=== PATIENT | female | born 1970 | race Caucasian/White ===

== ENCOUNTER 2016-12-11 17:00 | Emergency (ER) | payer OTHER ==
[2016-12-11 17:27] VITALS: BP 147/88
--- NOTE | 2016-12-11 17:37 | UC ---
Skin Complaint HPI - HPI Summary HPI Summary: ITCHY RASH ALL OVER X 9 DAYS HAS AT [place] 10 DAYS AGO , WENT TO THE URGENT CARE FOR THE RASH , WAS PLACED ON PREDNISONE FOR 3 DAYS , NOT MUCH IMPROVEMENT OF THE THE RASH NO FEVER, NO CHILLS, NO SOB - History of Current Complaint Chief Complaint: UCSkin Time Seen by Provider: 12/11/16 17:11 Stated Complaint: RASH & COLD SYMPTOMS Hx Obtained From: Patient Hx Last Menstrual Period: ablation ?: No Onset/Duration: Sudden Onset, Lasting Days - 9, Still Present Timing: Constant Onset Severity: Moderate Current Severity: Moderate Location: Diffuse Character: Pruritus, Hives, Redness Aggravating: Nothing Alleviating: Nothing Associated Signs & Symptoms: Positive: Cough. Negative: Nausea, Vomiting, Numbness, Thirst, Diaphoresis, Weakness, Pallor, Shivering, Difficulty Breathing , Fever, Chills, Wheezing, Throat Tightening - Allergy/Home Medications Allergies/Adverse Reactions: Allergies Allergy/AdvReac Type Severity Reaction Status Date / Time seasonal Allergy Intermediate Congestion Uncoded 12/11/16 17:18 Home Medications: Home Medications Amoxicillin CAP* [-Amoxicillin CAP*] 250 mg PO TID 12/11/16 [History Confirmed 12/11/16] Diphenhydramine HCl [Benadryl Allergy] 50 mg PO Q6H PRN 12/11/16 [History Confirmed 12/11/16] Sleeping Aid 1 tab PO BEDTIME PRN 12/11/16 [History Confirmed 12/11/16] Review of Systems Constitutional: Negative Skin: Rash Eyes: Negative ENT: Sore Throat Respiratory: Cough Cardiovascular: Negative Gastrointestinal: Negative Genitourinary: Negative All Other Systems Reviewed And Are Negative: Yes PMH/Surg Hx/FS Hx/Imm Hx Endocrine History Of: Reports: Thyroid Disease - HYPO Denies: Diabetes Cardiovascular History Of: Denies: Cardiac Disorders, Hypertension, Pacemaker/ICD Respiratory History Of: Reports: Asthma Denies: COPD, Bronchitis GI/ History Of: Denies: Ulcer Psychological History Of: Reports: Anxiety - Surgical History Surgical History: Yes Surgery Procedure, Year, and Place: Uterine Ablation. Tubes in Ears. Sinus Surgery. Right Ankle Reconstruction. LEFT SHOULDER REPAIR. BLADDER- STIMULATOR REMOVED - PT NEEDS TO GET DOCUMENTATION THAT ALL PARTS OF STIMULATOR WAS REMOVED INCLUDING WIRES - Family History Known Family History: Positive: None Negative: Diabetes - Social History Alcohol Use: Occasionally Substance Use Type: None Smoking Status (MU): Never Smoked Tobacco - Immunization History Most Recent Influenza Vaccination: no Most Recent Tetanus Shot: around 5 yr ago Physical Exam Triage Information Reviewed: Yes Appearance: Well-Appearing, No Pain Distress, Well-Nourished Vital Signs: Initial Vital Signs Temp 98.8 F 12/11/16 17:10 Pulse 88 12/11/16 17:10 Resp 16 12/11/16 17:10 BP 147/88 12/11/16 17:10 Pulse Ox 100 12/11/16 17:10 Vital Signs Reviewed: Yes Eyes: Positive: Conjunctiva Clear ENT: Positive: Normal ENT inspection, Hearing grossly normal, Pharynx normal, Pharyngeal erythema Neck: Positive: Supple, Nontender, No Lymphadenopathy Respiratory: Positive: Chest non-tender, Lungs clear, Normal breath sounds Cardiovascular: Positive: RRR, No Murmur, Pulses Normal Skin: Positive: rashes - GENERALIZED MACULAR RASH Course/Dx - Diagnoses Provider Diagnoses: HIVES Discharge - Discharge Plan Condition: Stable Disposition: HOME Prescriptions: predniSONE TAB* [Deltasone TAB*] 40 mg PO DAILY #14 tab Patient Education Materials: Urticaria (ED) Referrals: Oralia Mckeon [Primary Care Provider] - 7 Days
== END 2016-12-11 17:45 | disposition home or self-care (01) ==
LOC: UCCORT 17:00
DX: L50.9 Urticaria, unspecified (principal)
CPT/HCPCS: 99212; G0463

== ENCOUNTER 2017-04-13 09:09 | Emergency (ER) | payer OTHER ==
[2017-04-13 09:52] VITALS: BP 149/72
--- NOTE | 2017-04-13 09:52 | UC ---
Upper Extremity HPI - HPI Summary HPI Summary: She has had right shoulder pain for about a month. there is no neck pain. She gets more pain with sleeping on it. she practices crossfit. No fall or obvious injuury. - History of Current Complaint Chief Complaint: UCUpperExtremity Stated Complaint: RIGHT SHOULDER PAIN Hx Obtained From: Patient Hx Last Menstrual Period: 8 yrs ago Onset/Duration: Lasting Days Severity Initially: Moderate Location Of Pain: Is Discrete @ Character: Dull, Aching Aggravating Factor(s): Movement, Lifting, Internal/External Rotation Alleviating Factor(s): Ice, Rest Associated Signs And Symptoms: Positive: Negative - Allergies/Home Medications Allergies/Adverse Reactions: Allergies Allergy/AdvReac Type Severity Reaction Status Date / Time seasonal Allergy Intermediate Congestion Uncoded 04/13/17 09:39 Home Medications: Home Medications Anti-Anxiety Med 1 tab PO DAILY 04/13/17 [History Confirmed 04/13/17] LORazepam TAB(*) [Ativan 0.5 MG TAB (*)] 0.5 mg PO BEDTIME PRN 04/13/17 [ History Confirmed 04/13/17] PMH/Surg Hx/FS Hx/Imm Hx Endocrine History Of: Reports: Diabetes, Thyroid Disease - HYPO Cardiovascular History Of: Denies: Cardiac Disorders, Hypertension, Pacemaker/ICD Respiratory History Of: Reports: Asthma Denies: COPD, Bronchitis GI/ History Of: Denies: Ulcer Psychological History Of: Reports: Anxiety - Surgical History Surgical History: Yes Surgery Procedure, Year, and Place: Uterine Ablation. Tubes in Ears. Sinus Surgery. Right Ankle Reconstruction. LEFT SHOULDER REPAIR. BLADDER- STIMULATOR REMOVED - PT NEEDS TO GET DOCUMENTATION THAT ALL PARTS OF STIMULATOR WAS REMOVED INCLUDING WIRES - Family History Known Family History: Positive: None Negative: Diabetes - Social History Alcohol Use: Occasionally Substance Use Type: None Smoking Status (MU): Never Smoked Tobacco - Immunization History Most Recent Influenza Vaccination: no Most Recent Tetanus Shot: around 5 yr ago Review of Systems All Other Systems Reviewed And Are Negative: Yes Physical Exam Triage Information Reviewed: Yes Appearance: Well-Appearing, No Pain Distress, Well-Nourished Vital Signs: Initial Vital Signs Temp 97.9 F 04/13/17 09:41 Pulse 96 04/13/17 09:41 Resp 18 04/13/17 09:41 BP 149/72 04/13/17 09:41 Pulse Ox 100 04/13/17 09:41 Vital Signs Reviewed: Yes Eye Exam: Normal Eyes: Positive: Conjunctiva Clear ENT Exam: Normal Neck exam: Normal Neck: Positive: Supple, Nontender, No Lymphadenopathy Respiratory Exam: Normal Cardiovascular Exam: Normal Cardiovascular: Positive: RRR Abdominal Exam: Normal Musculoskeletal Exam: Other - 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 There is full strength with internal and external rotation and lateral abduction but there is pain with empty can. Neg apprehension and cross over test. Musculoskeletal: Positive: ROM Intact, No Edema Upper Extremity Course/Dx - Differential Dx/Diagnosis Provider Diagnoses: right shoulder pain. likely bursitis vs rotator cuff strain Discharge - Discharge Plan Condition: Good Disposition: HOME Prescriptions: Naproxen TAB* [Naprosyn 250 mg TAB*] 500 mg PO Q8H PRN #20 tab PRN Reason: Pain Patient Education Materials: Shoulder Pain (ED) Referrals: Oralia Mckeon [Primary Care Provider] - Kenan Corral MD [Medical Doctor] -
== END 2017-04-13 10:04 | disposition home or self-care (01) ==
LOC: UCCORT 09:09
DX: M25.511 Pain in right shoulder (principal); E11.9 Type 2 diabetes mellitus without complications; E03.9 Hypothyroidism, unspecified; J45.909 Unspecified asthma, uncomplicated; F41.9 Anxiety disorder, unspecified
CPT/HCPCS: 99212; G0463

== ENCOUNTER 2017-05-13 09:55 | Emergency (ER) | payer OTHER ==
[2017-05-13 12:08] VITALS: BP 145/60
--- NOTE | 2017-05-13 12:44 | UC ---
Hand/Wrist HPI - HPI Summary HPI Summary: complaint of left midddle finger swelling and pain following a manicure 7 days ago since then the swelling has increased and pain is radiating into finger and hand using hot ompresses and neosporin with relief denies fever and chills taking ibuprofen with some relief - History Of Current Complaint Chief Complaint: Idalmis Stated Complaint: LEFT HAND/FINGER PAIN Time Seen by Provider: 05/13/17 12:28 Hx Obtained From: Patient Hx Last Menstrual Period: 2005 - Allergies/Home Medications Allergies/Adverse Reactions: Allergies Allergy/AdvReac Type Severity Reaction Status Date / Time seasonal Allergy Intermediate Congestion Uncoded 05/13/17 12:07 Home Medications: Home Medications Antidepressant 1 tab PO DAILY 05/13/17 [History Confirmed 05/13/17] PMH/Surg Hx/FS Hx/Imm Hx Previously Healthy: Yes - Surgical History Surgical History: Yes Surgery Procedure, Year, and Place: Uterine Ablation. Tubes in Ears. Sinus Surgery. Right Ankle Reconstruction. LEFT SHOULDER REPAIR. 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 - Family History Known Family History: Positive: None Negative: Cardiac Disease, Hypertension, Diabetes - Social History Occupation: Employed Full-time Alcohol Use: Occasionally Substance Use Type: None Smoking Status (MU): Never Smoked Tobacco - Immunization History Most Recent Influenza Vaccination: no Most Recent Tetanus Shot: since 2006 Review of Systems Constitutional: Negative Skin: Other - left middle finger pain Eyes: Negative ENT: Negative Respiratory: Negative Cardiovascular: Negative Gastrointestinal: Negative Genitourinary: Negative Motor: Negative Neurovascular: Negative Musculoskeletal: Negative Neurological: Negative Psychological: Negative All Other Systems Reviewed And Are Negative: Yes Physical Exam Triage Information Reviewed: Yes Appearance: No Pain Distress, Well-Nourished Vital Signs: Initial Vital Signs Temp 99 F 05/13/17 12:00 Pulse 79 05/13/17 12:00 Resp 18 05/13/17 12:00 BP 145/60 05/13/17 12:00 Vital Signs Reviewed: Yes Eyes: Positive: Conjunctiva Clear ENT: Positive: Pharynx normal, TMs normal Neck: Positive: No Lymphadenopathy Respiratory: Positive: Lungs clear, Normal breath sounds, No respiratory distress Cardiovascular: Positive: RRR, No Murmur, Pulses Normal Abdomen Description: Positive: Nontender, Soft Bowel Sounds: Positive: Present Musculoskeletal: Positive: Other: - left middle finger with area of induration of medial side of finger in distal joint, area of erythema around induration Neurological: Positive: Alert Psychological Exam: Normal Skin Exam: Normal - see musculoskeletal Hand/Wrist Course/Dx - Differential Dx/Diagnosis Provider Diagnoses: cellulitis, abscess left middle finger pain Discharge - Discharge Plan Condition: Stable Disposition: HOME Prescriptions: Cephalexin CAP* [Keflex CAP*] 500 mg PO TID #21 cap Patient Education Materials: Cellulitis (ED) Referrals: Any De Leon MD [Primary Care Provider] - Additional Instructions: Please start antibiotic as directed Increase fluids and rest Take acetaminophen or ibuprofen for fever or pain Please review your discharge instructions. If your symptoms do not improve please call your primary care provider or return to urgent care.
== END 2017-05-13 13:07 | disposition home or self-care (01) ==
LOC: UCCORT 09:55
DX: L03.012 Cellulitis of left finger (principal); L02.512 Cutaneous abscess of left hand
CPT/HCPCS: 87070; 87077; 87186; 87205; 87640; 87641; 99212; G0463

== ENCOUNTER 2017-11-23 17:22 | Emergency (ER) | payer BC ==
--- OUTSIDE RECORDS SUMMARY | 2017-11-23 18:12 | XMS REPORT ---
:1970 External Reference #:[id number] Author Organization [employer] Address [address] [address] Phone [phone] Care Team Providers Name Role Phone Any De Leon MD Primary Care Physician Unavailable Payers Type Date Identification Numbers Payment Provider Subscriber Commercial Effective: Policy Number: BS Facets Charleen Acevedo 2017 [id number] PayID: [id number] [address] [address] [place] [address] Problems Date Description Provider Status Onset: 11/03/2017 Strain of musc/tend the rotator cuff of Poli Curry MD Active right shoulder, subs Onset: 11/03/2017 Bicipital tenosynovitis Poli Curry MD Active Family History Date Family Member(s) Problem(s) Comments General Stroke mother. 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 ETOH Use Occasionally consumes alcohol Recreational Drug Use Denies Drug Use Smoking Patient is a former smoker Exercise Type/Frequency Cross fit 4-5 times per week Allergies, Adverse Reactions, Alerts Date Description Reaction Status Severity Comments 09/11/2013 NKDA active Medications Medication Date Status Form Strength Qnty SIG Indications Ordering Provider Singulair Active Tablets 10mg 90tabs 1 po qd Unknown 000 Ativan Active Tablets 1mg 20tabs 1/2-1 po bid Unknown 000 prn Advair Diskus Active Aerosol 100-50mcg/ 1units 1 inhalation Unknown 000 Dose twice daily [place] Active Tablets 1 po every Unknown Thyroid 000 day Ibuprofen Active Tablets 200mg 4 po as Unknown 000 needed Naproxen Hx Tablets 500mg 60tabs 1 tablet M25.562 Sonali 016 - with food by Kenan, mouth twice M.D. 017 a day Naproxen Hx Tablets 500mg 60tabs 1 po bid prn 719.41 Praveen 013 - with food Veigel, M.D. 017 Synthroid Hx Tablets 100mcg 90tabs 1 po qd Unknown 000 - 017 Medications Administered in Office Medication Date Status Form Strength Qnty SIG Indications Ordering Provider Triamcinolone 11/03/ Administered Injection Zaneb (Kenalog) 2016 MD Antoinette Celestone 3 mg 10/25/ Administered Injection Kenan M and 3mg 2016 MD Shayna Celestone 3 mg 04/13/ Administered Injection Kenan [place] and 3mg 2016 MD Shayna Vital Signs Date Vital Result Comment 11/03/2017 Height 70 inches 5'10" Weight 192.00 lb Heart Rate 80 /min Respiratory Rate 14 /min Body Temperature 98.1 F Pain Level 7 BMI (Body Mass Index) 27.5 kg/m2 10/25/2017 Height 70 inches 5'10" Weight 193.00 lb Heart Rate 68 /min BP Systolic Sitting 132 mmHg BP Diastolic Sitting 68 mmHg Respiratory Rate 16 /min Pain Level 8 finger, 6 for shoulder BMI (Body Mass Index) 27.7 kg/m2 04/13/2017 Heart Rate 88 /min BP Systolic 124 mmHg BP Diastolic 78 mmHg Respiratory Rate 16 /min Pain Level 6 02/16/2016 Height 70 inches 5'10" Weight 198.00 lb Pain Level 0 BMI (Body Mass Index) 28.4 kg/m2 01/05/2016 Height 70 inches 5'10" Weight 198.00 lb Heart Rate 72 /min BP Systolic Sitting 132 mmHg BP Diastolic Sitting 74 mmHg Respiratory Rate 16 /min Pain Level 8 at the worst BMI (Body Mass Index) 28.4 kg/m2 09/11/2013 Height 70 inches 5'10" Weight 192.00 lb BMI (Body Mass Index) 27.5 kg/m2 Results Test Date Test Result H/L Range Note Xray 09/20/2013 Shoulder Complete LT Min Of 2 Views <pending> Procedures Date CPT Code Description Status 11/03/2017 Inject/Drain Joint/Bursa Major Completed 10/25/2017 52995 Rad Exam; Hand Comp Completed 10/25/201757282 Inject/Drain Joint/Bursa Small Completed 04/13/2017 99233 Rad Shoulder Comp, Min. 2 Views Completed 04/13/2017 40409 Inject Tendon Sheath Or Ligament Aponeurosis Eg Plantar Completed Fascia 09/20/2013 34114 Rad Shoulder Comp, Min. 2 Views Completed Encounters Type Date Location Provider CPT E/M Dx Office Visit 10/25/2017 [facility] [place] [address] M75.21 10:00a [facility] M19.042 M79.642 Office Visit 04/13/2017 10:15a [facility] [place] [address] M75.21 [facility] Office Visit 02/16/2016 11:15a [facility] Gr[facility] M.D. 19991 M25.562 C.M.A. M76.52 M70.42 S80.02xD M25.462 Office Visit 01/05/2016 1:30p [facility] M.D. 56460 M25.562 C.M.A. M76.52 M70.42 S80.02xA Office Visit 10/02/2013 10:00a [facility] Praveen Oakes M.D. 06206 719.41 [facility] Office Visit 09/20/2013 3:00p [facility] Praveen Oakes M.D. 85092 719.41 [facility] Office Visit 09/11/2013 9:40a [facility] Praveen Oakes M.D. 06158 719.41 [facility] Plan of Care 11/03/2017 - Poli Curry, MDM75.21 Bicipital tendinitis, right shoulderFollow up:Follow up: As [id number] Strain of musc/tend the rotator cuff of right shoulder, subs
--- OUTSIDE RECORDS SUMMARY | 2017-11-23 18:12 | XMS REPORT ---
:1970 External Reference #:[id number] Author Organization [employer] Address [address] [address] Phone [phone] Care Team Providers Name Role Phone Any De Leon MD Primary Care Physician Unavailable Payers Type Date Identification Numbers Payment Provider Subscriber Commercial Effective: Policy Number: BS Facets Charleen Acevedo 2017 [id number] PayID: [id number] [address] [address] [place] [address] Problems Description No Information Family History Date Family Member(s) Problem(s) Comments [...] Strength Qnty SIG Indications Ordering Provider Singulair / Active Tablets 10mg 90tab 1 po qd Unknown 0000 s Ativan 00/00/ Active Tablets 1mg 20tab 1/2-1 po Unknown 0000 s bid prn Advair Diskus / Active Aerosol 100-50mcg/ 1unit 1 Unknown 0000 Dose s inhalation twice daily [place] Thyroid 00/ Active Tablets 1 po every Unknown 0000 day Ibuprofen 00/00/ Active Tablets 200mg 4 po as Unknown 0000 needed Naproxen 01/05/ Hx Tablets 500mg 60tab 1 tablet M25.562 Sonali 2016 - s with food Kenan, 04/12/ by mouth M.D. 2016 twice a day Naproxen 09/11/ Hx Tablets 500mg 60tab 1 po bid 719.41 Praveen 2012 - prn with Veigel, 04/12/ food M.D. 2016 Synthroid / Hx Tablets 100mcg 90tab 1 po qd Unknown 0000 - s 2016 Triamcinolone / Active Injection Zaneb (Kenalog) 0000 MD Antoinette Medications Administered in Office Medication Date Status Form Strength Qnty SIG Indications Ordering Provider Celestone 3 mg Administered Injection Kenan M and 3mg 017 MD Shayna Celestone 3 mg Administered Injection Kenan M and 3mg 017 MD Shayna Vital Signs Date Vital Result [...] <pending> Procedures Date CPT Code Description Status 10/25/2017 29197 Rad Exam; Hand Comp Completed 10/25/201751243 Inject/Drain Joint/Bursa Small Completed 04/13/2017 92053 Rad Shoulder Comp, Min. 2 Views Completed 04/13/2017 45826 Inject Tendon Sheath Or Ligament Aponeurosis Eg Plantar Completed Fascia 09/20/2013 79272 Rad Shoulder Comp, Min. 2 Views Completed Encounters Type Date Location Provider CPT E/M Dx Office Visit 10/25/2017 [facility] [place] [address] M75.21 10:00a [facility] M19.042 M79.642 Office Visit 04/13/2017 10:15a [facility] [place] [address] M75.21 [facility] Office Visit 02/16/2016 11:15a [facility] Grayson M.D. 84614 M25.562 C.M.A. M76.52 M70.42 S80.02xD M25.462 Office Visit 01/05/2016 1:30p [facility] M.D. 04632 M25.562 C.M.A. M76.52 M70.42 S80.02xA Office Visit 10/02/2013 10:00a [facility] Praveen Oakes M.D. 92530 719.41 [facility] [place] Office Visit 09/20/2013 3:00p [facility] Praveen Oakes M.D. 17507 719.41 [facility] [place] Office Visit 09/11/2013 9:40a [facility] Praveen Oakes M.D. 50731 719.41 [facility] [place] Plan of Care 10/25/2017 - Kenan Corral, MDM75.21 Bicipital tendinitis, right shoulderNew Xrays:MRI Shoulder Right W/OFollow up:Follow up: Yaseen after mriM19.042 Primary osteoarthritis, left handM79.642 Pain in left hand
[2017-11-23 18:24] VITALS: BP 159/86
--- NOTE | 2017-11-23 18:27 | UC ---
Throat Pain/Nasal Junior HPI - HPI Summary HPI Summary: 47 year old female presents with complains of rash on her elbows and cough. - History of Current Complaint Chief Complaint: UCSkin Stated Complaint: RASH/COLD SYMPTOMS Time Seen by Provider: 11/23/17 18:27 Hx Obtained From: Patient Hx Last Menstrual Period: 2005 Onset/Duration: Sudden Onset Severity: Moderate Cough: Nonproductive Associated Signs & Symptoms: Positive: Negative Related History: Seasonal Allergies - Allergies/Home Medications Allergies/Adverse Reactions: Allergies Allergy/AdvReac Type Severity Reaction Status Date / Time seasonal Allergy Intermediate Congestion Uncoded 11/23/17 18:24 Home Medications: Home Medications diPHENhydraMINE PO* [Benadryl PO 25 MG TAB*] 50 mg PO TID PRN 11/23/17 [History Confirmed 11/23/17] PMH/Surg Hx/FS Hx/Imm Hx Previously Healthy: Yes - Surgical History Surgical History: Yes Surgery Procedure, Year, and Place: Uterine Ablation. Tubes in Ears. Sinus Surgery. Right Ankle Reconstruction. LEFT SHOULDER REPAIR. 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 - Family History Known Family History: Positive: None Negative: Cardiac Disease, Hypertension, Diabetes - Social History Alcohol Use: Occasionally Substance Use Type: None Smoking Status (MU): Never Smoked Tobacco - Immunization History Most Recent Influenza Vaccination: no Most Recent Tetanus Shot: since 2006 Review of Systems Constitutional: Negative Skin: Rash Eyes: Negative ENT: Negative Respiratory: Cough Cardiovascular: Negative Gastrointestinal: Negative Genitourinary: Negative Motor: Negative Neurovascular: Negative Musculoskeletal: Negative Neurological: Negative Psychological: Negative All Other Systems Reviewed And Are Negative: Yes Physical Exam Triage Information Reviewed: Yes Vital Signs: Initial Vital Signs Temp 37.3 C 11/23/17 18:18 Pulse 91 11/23/17 18:18 Resp 16 11/23/17 18:18 BP 159/86 11/23/17 18:18 Pulse Ox 100 11/23/17 18:18 Vital Signs Reviewed: Yes Eye Exam: Normal ENT Exam: Normal Dental Exam: Normal Neck exam: Normal Neck: Positive: 1 Respiratory: Positive: Wheezing Cardiovascular Exam: Normal Abdominal Exam: Normal Musculoskeletal Exam: Normal Neurological Exam: Normal Psychological Exam: Normal Skin: Positive: rashes Throat Pain/Nasal Course/Dx - Differential Dx/Diagnosis Provider Diagnoses: rash. cough Discharge - Discharge Plan Condition: Stable Disposition: HOME Prescriptions: Azithromyxin ELZBIETA (NF) [Z-Elzbieta (Zithromax) 250 mg tabs #6] 2 tab PO .TODAY, THEN 1 DAILY #6 tab Methylprednisolone [Medrol Dosepak 4 MG*] 4 mg PO .SEE ELZBIETA INSTRUCTION #21 tab Triamcinolone 0.1% CREAM (NF) [Kenalog 0.1% Cream (NF)] 1 applic TOPICAL TID PRN #85 gm PRN Reason: Rash Patient Education Materials: Acute Rash (ED) Referrals: Any De Leon MD [Primary Care Provider] -
== END 2017-11-23 18:45 | disposition home or self-care (01) ==
LOC: UCCORT 17:22
DX: R21 Rash and other nonspecific skin eruption (principal); R05 Cough; Z91.048 Other nonmedicinal substance allergy status
CPT/HCPCS: 99212; G0463

== ENCOUNTER 2017-12-19 06:34 | Day surgery (SDC) | payer BC ==
[~2017-12-19 06:34] MED LIST: Buffered Lidocaine 0.9% SYRIN* 5 ML/SYR SYRINGE INTRADERM ONE; Dexamethasone IV* 4 MG/ML 1 ML (4 MG) IV SLOW PU ONE; Dexamethasone IV* 4 MG/ML 1 ML (4 MG) ONE; Famotidine IV* 10 MG/ML 2 ML (20 mg) IV ONE; Famotidine IV* 10 MG/ML 2 ML (20 mg) ONE; Scopolamine 1.5 mg* PATCH ONE; Scopolamine 1.5 mg* PATCH TRANSDERM ONE
[2017-12-19] MEDS ORDERED: ceFAZolin 2 GM PREMIX (*) 2 GM/50 ML BAG IVPB ONE (06:41)
[2017-12-19] MEDS ORDERED: Bupivacaine 0.25% SDV* 30 ML ONE (07:11)
[2017-12-19] MEDS ORDERED: fentaNYL* 50 MCG/ML 2 ML VIAL (100 MCG VIAL) ONE ×2 (07:16→09:18)
[2017-12-19] MEDS ORDERED: Midazolam* 1 MG/ML 2 ML VIAL (2 MG) ONE (07:16)
[2017-12-19] MEDS ORDERED: Mivacurium Chloride* 20 MG/10 ML VIAL IV ONE (07:17)
[2017-12-19] MEDS ORDERED: Lidocaine 2% PF * 5 ML VIAL ONE (07:17)
[2017-12-19] MEDS ORDERED: Propofol* 10 MG/ML 20 ML BTL IV PUSH ONE (07:17)
[2017-12-19] MEDS ORDERED: ROPIVACAINE 5 MG/ML 30 ML BTL (0.5%) ONE (07:30)
[2017-12-19] MEDS ORDERED: Ketorolac INJ* 30 MG/ML 1 ML VIAL ONE (08:24)
[2017-12-19] MEDS ORDERED: HYDROcodone/ACETAMIN 5-325 MG* 1 TAB PO PRN (08:49)
[2017-12-19] MEDS ORDERED: fentaNYL* 50 MCG/ML 2 ML VIAL (100 MCG VIAL) IV PRN (08:49)
[2017-12-19] MEDS ORDERED: oxyCODONE/Acetamin 5/325 MG* TAB PO PRN (08:49)
[2017-12-19] MEDS ORDERED: PROCHLORPERAZINE INJ 5 MG/ML 2 ML VIAL IV PRN (08:49)
[2017-12-19] MEDS ORDERED: Naloxone* 0.4 MG/ML 1 ML VIAL IV PRN (08:49)
[2017-12-19] MEDS ORDERED: DiMENhydriNATE IV* 50 MG/ML VIAL IV PUSH PRN (08:49)
[2017-12-19] MEDS ORDERED: Ondansetron INJ* 2 MG/ML VIAL ONE (08:50)
[2017-12-19 10:37] VITALS: BP 139/79
--- NOTE | 2017-12-20 02:02 | OP ---
CC: PCP, Any De Leon MD * DATE OF OPERATION: 12/19/17 - [facility] DATE OF : 68 SURGEON: Poli Curry MD MANAGER TELEMETRY: MANDY Conde. An clinic assistant was needed for the case to help with the positioning, retraction and was utilized throughout all portions of the case. ANESTHESIOLOGIST: Dr. Armas. ANESTHESIA: General interscalene block. PRE-OP DIAGNOSIS: Right shoulder partial thickness tear of the rotator cuff with bicipital tendonitis in the biceps groove as well as AC joint arthritis. POST-OP DIAGNOSIS: Rotator cuff tear and high-grade partial thickness tear with AC joint arthritis, bicipital tendinitis in the groove. OPERATIVE PROCEDURE: 1. Right shoulder arthroscopy with glenohumeral debridement. 2. Subacromial decompression with acromioplasty. 3. Distal clavicle excision. 4. Rotator cuff repair, double row fashion. 5. Subpectoral biceps tenodesis. IMPLANTS USED: One 4.75 Healicoil, one Multifix and one 2.8 mm Q-Fix. COMPLICATIONS: None. ESTIMATED BLOOD LOSS: Minimal. INDICATIONS: Charleen Acevedo is a 47-year-old female, who presented with shoulder pain for over 6 months. She has failed conservative management. She was diagnosed with a partial thickness tear of the rotator cuff with bicipital tendonitis. She responded to conservative treatment for only a short amount of time. She had persistent pain including night pain. Risks and benefits of surgery were discussed at length including but are not limited to bleeding, infection, damage to nerves, vessels, surrounding structures, wound nonhealing, persistent pain, need for further surgery, scarring, stiffness, incomplete relief of symptoms, risks of anesthesia. DESCRIPTION OF PROCEDURE: The patient was greeted in the preoperative area by the attending surgeon. Correct extremity was marked and consent was confirmed. She was brought back to the operating suite where she was placed in supine position on the operating table. She then underwent general anesthesia endotracheal intubation after which she was placed in the left lateral decubitus position with all bony prominences padded as well as an axillary roll. She was secured with pegboard. The right arm was draped unsterile with 10 pounds of traction. Right shoulder was then prepped and draped in the usual sterile fashion beginning with chlorhexidine soap, scrub, and alcohol wipe and a final prep with ChloraPrep. After appropriate surgical pause, indicating side, site, procedure, and administration of antibiotics, the posterolateral portal was made sharply with 11 blade. The scope was introduced into the joint. The glenohumeral joint had grade 0 to 1 changes. Anteroposterior labrum had minimal fraying, but there was erythema and there was inflammation and erythema along the bicipital groove. The anterior portal was made in an outside-in fashion. Undersurface of the subscap was intact. Undersurface of the supraspinatus was mostly intact for a small area where there was some partial tearing. This was then marked with an 0 PDS suture. There was concern that it was somewhat thin just in that area. Infraspinatus was intact. The biceps was then tenotomized for later tenodesis. Once the biceps was tenotomized, intra-articular work was done. The scope was positioned in the subacromial space. There was abundant erythematous inflamed bursa that was present in the lateral portal in an outside-in fashion. Shaver was used to debride the abundant thick bursa. The undersurface of the acromion was skeletonized using electrocautery device. CA ligament was peeled back. This revealed an anterolateral spur. A 4 -0 oval gloria was then used to do a small acromioplasty. This carried back all the way to the AC joint where there is very stenotic AC joint. This was then co -planed. All fluid and debris were removed from this portion of the case. Attention was directed to the AC joint. The glroia was brought into the anterior portal. An 8 mm of the distal clavicle was then removed carefully with arthroscopic gloria and the electrocautery device was used to maintain hemostasis at all time. Once this was complete, final images were obtained. All fluid and debris were removed from that portion of the case. Attention was directed back to the rotator cuff. The rotator cuff was probed at the portion where the PDS was used to alfonso and it was found to have high-grade partial thickness tear on the bursal side. Decision was made to do a repair. This was essentially a high-grade tear more than 50% of the tendon. The electrocautery device was used to complete the tear. The rasp and the gloria were used to gently decorticate the greater tuberosity to the level of the joint line. The shaver was used to debride back the rotator cuff. Once this was done and the bony as well as soft tissue portion was prepared, an 18-gauge needle was used for localization for the anchor, which was placed through a separate stab incision. The anchor was placed with excellent purchase. She had very good quality bone. The awl was then used to do a small micro fascia of the greater tuberosity to allow for further points of fixation. The sutures were then passed through the tendon in a horizontal mattress configuration and tied down. The sutures were then passed through a second anchor, which was secured into lateral row for lateral row fixation. This helped to compress the cuff. This restored the rotator cuff to the normal anatomy. The final images were placed. The shoulder was taken through range of motion. There was no evidence of further tearing. The wounds were copiously irrigated. Attention was directed to the biceps. The bed was airplaned to the right side. The anterior shoulder was then prepped again using ChloraPrep. The 15 blade was used to make an incision along with biceps encompassing the inferior two thirds of the pec. The superficial dissection was done with metzenbaum scissors. The remainder of the dissection was done bluntly. The pec fascia was identified. The pec was translated anteriorly and the bicipital groove was palpated and biceps was brought through the wound. There was abundant hyperemia and erythema there. The bicipital groove was then prepared in the usual sterile fashion with electrocautery device, the red ball rasp as well as the osteotome to allow for good bony bleeding bed. The Q-Fix anchor was chosen unicortically and placed with excellent purchase. Suture was then passed through the tendon in a modified Laron Daniel type of configuration. The excess stump was then excised and then the biceps was shuttled back into the wound and secured. The wounds were copiously irrigated with sterile saline. The anterior wound was closed in layers with 2-0 Vicryl and 3-0 Monocryl. The portals were closed with 3-0 nylon. Sterile dressings were applied. The anterior wound was injected with 20 cc of 0.25% Marcaine. Sterile dressings were applied. A Cryo/Cuff and UltraSling were applied. She was awoken from anesthesia and transferred to PACU in stable condition. POSTOPERATIVE PLAN: She will be nonweightbearing. She will be allowed range of motion of the elbow, hand, and wrist. She will start physical therapy in 4 weeks. Discharge on pain medications, antibiotics. DVT prophylaxis was considered, but deferred due to no previous personal or family history. [id number]/[facility] #: [id number] [place]
[2017-12-20] MEDS ORDERED: fentaNYL* 50 MCG/ML 2 ML VIAL (100 MCG VIAL) ONE (07:16)
[2017-12-20] MEDS ORDERED: Propofol* 10 MG/ML 20 ML BTL IV PUSH ONE (07:16)
[2017-12-20] MEDS ORDERED: Midazolam* 1 MG/ML 2 ML VIAL (2 MG) ONE (07:16)
[2017-12-20] MEDS ORDERED: Lidocaine 2% PF * 5 ML VIAL ONE (07:16)
[2017-12-22] MEDS ORDERED: Scopolamine PATCH Remove* 1 NOTE MISC PATCH OFF ONE (06:00)
== END 2017-12-19 10:50 | disposition home or self-care (01) ==
LOC: OREAST 06:34
PROVIDERS: ATTEND Orthopaedic Surgery
DX: S46.011A Strain of muscle(s) and tendon(s) of the rotator cuff of right shoulder, initial encounter (principal); M75.21 Bicipital tendinitis, right shoulder; M19.211 Secondary osteoarthritis, right shoulder; Z87.891 Personal history of nicotine dependence; X58.XXXA Exposure to other specified factors, initial encounter; Y92.9 Unspecified place or not applicable; J45.909 Unspecified asthma, uncomplicated; E03.9 Hypothyroidism, unspecified
CPT/HCPCS: 81025; A9270-GY; C1713; C1776; J0690; J1100; J1885; J2250; J2405; J2704; J2795; J3010

== ENCOUNTER 2018-07-11 08:29 | Day surgery (SDC) | payer BC ==
--- NOTE | 2018-07-07 12:37 | HP ---
Amended report to enter cosigning physician. PREOPERATIVE HISTORY AND PHYSICAL: DATE OF SURGERY/ADMISSION: 07/11/18 DATE OF OFFICE VISIT/ENCOUNTER: 07/05/18 ATTENDING SURGEON: Camilla Lizarraga MD* (dictated by MANDY Ford). PROCEDURE: Left ring finger proximal interphalangeal joint arthroplasty, cortisone injection right ring finger proximal interphalangeal joint. CHIEF COMPLAINT: Left and right ring finger PIP joint pain. HISTORY OF PRESENT ILLNESS: This is a 48-year-old female who has had bilateral ring finger pain for several years, gradually getting worse. She has been seen by Dr. Corral in the past and has received cortisone injections from him, which was very painful and gave her just limited relief. She is looking for permanent solution to the problem. Her complaint is pain at the PIP joint that she also has loss of motion. It is very difficult for her to do things with her hands because she cannot make a fist. She denies any injury. X-rays had shown significant arthritic changes at the PIP joint in both ring fingers. The patient has consented at this time to undergo a left ring finger PIP joint arthroplasty and cortisone injection for her right ring finger PIP joint. PAST MEDICAL HISTORY: 1. Tracy's thyroiditis. 2. Asthma. 3. Anxiety/depression. PAST SURGICAL HISTORY: 1. Right shoulder. 2. Left shoulder. 3. Right ankle. 4. Sinus surgery. 5. Tubes in ears. 6. Uterine ablation. CURRENT MEDICATIONS: 1. Advair Diskus 100/50 mcg per dose 1 inhalation twice daily. 2. Armor Thyroid 1 every day. 3. Biotin 1 tab daily. 4. Bupropion HCl 75 mg daily. 5. Ibuprofen 200 mg 4 tablets p.r.n. 6. Multivitamin daily. 7. Myrbetriq 50 mg 1 tab daily. 8. [place]-3 fish oil 1 tab daily. 9. Singulair 10 mg daily. 10. Tumersaid 2 daily. 11. Venlafaxine HCl ER 150 mg daily. 12. Vitamin D12 1000 mcg monthly. ALLERGIES: No known drug allergies. FAMILY MEDICAL HISTORY: Lung cancer and skin cancer. SOCIAL HISTORY: The patient works from home. She is in [employer]. She denies tobacco use and recreational drug use. She drinks alcohol on occasion. REVIEW OF SYSTEMS: General: Negative for fevers, chills, night sweats, unexplained weight loss/gain. No known anesthesia problems. HEENT: Negative for headache, lightheadedness, syncopal episode, visual changes. Integumentary : Negative for abrasions, lesions, open wounds. Cardiothoracic: Negative for hypertension, chest pain, palpitations, edema. Respiratory: Negative for shortness of breath with exertion, chronic cough, wheezing. GI: Negative for nausea, vomiting, diarrhea, constipation, GERD. : Negative for nocturia, urinary frequency, urgency, history of UTIs, kidney problem. Musculoskeletal: Positive for current complaint. Negative for chronic or intermittent back pain. No history of fractures. Neurological: Positive for anxiety/depression. Negative for paresthesias, numbness, history of seizure, stroke, or balance. Endocrine: Positive for thyroid issues. Negative for diabetes. Hematologic: Negative for easy bruising, anemia, bleeding disorder, history of DVT. Infectious Disease: Positive for history of MRSA approximately one year ago at the tip of the left ring finger. Negative for hepatitis C or HIV. PHYSICAL EXAMINATION GENERAL: Well-developed, well-nourished, 48-year-old female, in no acute distress. VITAL SIGNS: Height 5 feet 10 inches, weight 209 pounds. Pulse rate 100, blood pressure 128/84. HEENT: Normocephalic, atraumatic. Pupils are equal, round, and reactive to light and accommodation. Extraocular movements are intact. Throat is clear. NECK: Supple. No palpable lymph nodes. PULMONARY: Lungs are clear to auscultation bilaterally. No wheezes, rales, or rhonchi. CARDIOVASCULAR: Regular rate and rhythm. S1, S2. No murmurs, rubs, or gallops. No edema. ABDOMEN: Positive bowel sounds, soft, nontender. NEUROLOGICAL: Alert and oriented x3. Cranial nerves II through XII are intact. Sensation is intact to light touch. MUSCULOSKELETAL: On exam of her hand, she has obvious degenerative changes in both ring finger PIP joint. There is swelling at both joint particularly at the left ring finger PIP to the point where she cannot get her rings off. She cannot make a fist of either hand. Neurovascular function is intact. SKIN: Intact. IMAGING STUDIES: X-rays AP, lateral, and oblique of bilateral hands shows severe degenerative arthritis of the right finger PIP joint. ASSESSMENT: Bilateral ring finger PIP arthritis. PLAN: The patient is scheduled to undergo a left ring finger proximal interphalangeal joint arthroplasty and cortisone injection to the right ring finger and proximal interphalangeal joint with Dr. Lizarraga on 07/11/18. She will return to the office in 10 days postop for followup and suture removal. A prescription for [place] was e-scribed to the patient's pharmacy for postoperative pain management. She understands she has to have the rings off of her left ring finger prior to proceeding the surgery. MANDY FORD [id number]/[facility] #: [id number] [place]
[~2018-07-11 08:29] MED LIST changes: +Acetaminophen TAB* 325 MG PO PRN; -Dexamethasone IV* 4 MG/ML 1 ML (4 MG) IV SLOW PU ONE; -Dexamethasone IV* 4 MG/ML 1 ML (4 MG) ONE; +DiMENhydriNATE IV* 50 MG/ML VIAL IV PUSH PRN; -Famotidine IV* 10 MG/ML 2 ML (20 mg) IV ONE; -Famotidine IV* 10 MG/ML 2 ML (20 mg) ONE; +HYDROcodone/ACETAMIN 5-325 MG* 1 TAB PO PRN; +HYDROmorphone INJ* 0.5 MG/0.5 ML SYRINGE IV PRN; +Levalbuterol 0.63MG/3ML NEB* UNIT OF USE INH PRN; +Naloxone* 0.4 MG/ML 1 ML VIAL IV PRN; +Ondansetron INJ* 2 MG/ML VIAL IV PRN; +PROCHLORPERAZINE INJ 5 MG/ML 2 ML VIAL IV PRN; -Scopolamine 1.5 mg* PATCH ONE; -Scopolamine 1.5 mg* PATCH TRANSDERM ONE; +fentaNYL* 50 MCG/ML 2 ML VIAL (100 MCG VIAL) IV PRN
[2018-07-11] MEDS ORDERED: Famotidine IV* 10 MG/ML 2 ML (20 mg) ONE (08:34)
[2018-07-11] MEDS ORDERED: ceFAZolin 2 GM PREMIX (*) 2 GM/50 ML BAG IVPB ONE (08:36)
[2018-07-11] MEDS ORDERED: methylPREDNISolone ACETATE 40* 40 MG/ML 1 ML VIAL ONE (09:49)
[2018-07-11] MEDS ORDERED: Lidocaine 1% INJ* 10 MG/ML 30 ML SDV ONE (09:50)
[2018-07-11] MEDS ORDERED: Midazolam* 1 MG/ML 2 ML VIAL (2 MG) ONE ×2 (09:54→10:42)
[2018-07-11] MEDS ORDERED: fentaNYL* 50 MCG/ML 2 ML VIAL (100 MCG VIAL) ONE ×2 (09:54→10:53)
[2018-07-11] MEDS ORDERED: Ketorolac INJ* 30 MG/ML 1 ML VIAL ONE (10:39)
[2018-07-11] MEDS ORDERED: Lidocaine 2% PF * 5 ML VIAL ONE (10:39)
[2018-07-11] MEDS ORDERED: Propofol* 10 MG/ML 20 ML BTL IV PUSH ONE ×2 (10:39→11:27)
[2018-07-11 12:59] VITALS: BP 130/75
--- NOTE | 2018-07-11 21:49 | OP ---
CC: Dr. Lizarraga* OPERATIVE NOTE: DATE OF OPERATION: 07/11/18 - [facility] DATE OF : 68 SURGEON: Camilla Lizarraga MD STAFF ATTORNEY: MANDY Ford ANESTHESIOLOGIST: Yvan Troncoso MD ANESTHESIA: Local MAC. PRE-OP DIAGNOSIS: Bilateral ring finger PIP arthritis. POST-OP DIAGNOSIS: Bilateral ring finger PIP arthritis. OPERATIVE PROCEDURE: Right ring finger PIP injection and left ring finger PIP replacement arthroplasty. INDICATIONS FOR PROCEDURE: Charleen is a 48-year-old female with very painful PIP joints of both ring fingers. She has severe degenerative arthritis. She presents for PIP replacement arthroplasty on the left ring finger and injection of the right ring finger PIP joint. ESTIMATED BLOOD LOSS: Zero. TOURNIQUET TIME: On the left was approximately 40 minutes. DESCRIPTION OF PROCEDURE: The patient was brought to the operating room, was given a sedation anesthetic and a digital block with 10 cc of 1% plain lidocaine to the left ring finger. The right ring finger PIP joint was injected with 40 mg Depo- Medrol and 1 cc of 1% plain lidocaine. The left hand and forearm were prepped and draped in the usual sterile fashion. The hand and forearm were exsanguinated and the tourniquet elevated to 250 mmHg. A longitudinal incision was made on the dorsal aspect of the ring finger centered over the PIP joint. The extensor tendon was incised longitudinally and split in the center and then carefully dissected off portion of the proximal aspect of the middle phalanx, which allowed me to fully flex the PIP joint. I was unable to gain access to both the articular surface of the proximal phalanx and the middle phalanx. An Geary was used to gain access to the intramedullary canal of the proximal phalanx and then the intramedullary alignment guide was placed and its position was checked on the C-arm. The alignment guide was centrally located in the medullary canal. The cutting guide was then placed and a saw was used to remove the distal aspect of the proximal phalanx just distal to the origin of the collateral ligaments. A rongeur was used then to remove the articular surface of the middle phalanx. An Geary was placed in the intramedullary canal of the middle phalanx and then with a combination of bur, drill, and curette, the canal was removed of excess bone and then a #0 and a # 1 broach were placed centrally in the canal, completely seated in the canal. The position of the #1 broach was checked on the C-arm and it filled the canal in the lateral view. Similarly the bur, drill, and curette were used to clear out the medullary canal of proximal phalanx and we broached up to a #1 implant size and the broach was checked in position with the C-arm and again on the lateral view, the canal was filled. A trial implant size 1 was placed and there was very good range of motion, stability, and then the trial implant was removed. The wound was copiously irrigated with saline including the medullary canals of the proximal and distal phalanx and then, the final implant was placed and again was very secure with good range of motion. The extensor tendon was repaired with 4-0 nylon suture in interrupted fashion and then after the extensor tendon repair, the implant was very stable and I could flex the PIP joint to approximately 80 to 90 degrees. The skin edges were reapproximated with 4-0 nylon suture. The wound was dressed with Xeroform, 4x4 , Webril, and a finger was payam taped to the middle and small fingers. The patient tolerated the procedure well and was brought to the recovery room in good condition. [id number]/[facility] #: [id number] [place]
== END 2018-07-11 12:43 | disposition home or self-care (01) ==
LOC: OREAST 08:29
PROVIDERS: ATTEND Orthopaedic Surgery
DX: M19.042 Primary osteoarthritis, left hand (principal); J45.909 Unspecified asthma, uncomplicated; F41.8 Other specified anxiety disorders; E06.3 Autoimmune thyroiditis
CPT/HCPCS: 88304; 88311; J0690; J1030; J1885; J2250; J2704; J3010

== ENCOUNTER 2018-11-10 12:37 | Day surgery (SDC) | payer BC ==
--- NOTE | 2018-11-06 00:28 | HP ---
PREOPERATIVE HISTORY AND PHYSICAL: DATE OF SURGERY/ADMISSION: 11/10/18 DATE OF OFFICE VISIT/ENCOUNTER: 11/02/18 ATTENDING SURGEON: Camilla Lizarraga MD * (DICTATED BY MANDY RITCHIE) PROCEDURE: Left ring finger suture removal. CHIEF COMPLAINT: Retained suture. HISTORY OF PRESENT ILLNESS: This is a 48-year-old female who underwent a left ring finger PIP joint arthroplasty in June [address] Lizarraga. Recently, she has noticed along the surgical scar a small painful lump. She denies any injury to the finger. It appears to be a suture abscess. She has consented to return to the operating room to have the suture removed. PAST MEDICAL HISTORY: 1. Tracy thyroiditis. 2. Asthma. 3. Anxiety/depression. PAST SURGICAL HISTORY: 1. Left ring finger proximal interphalangeal joint arthroplasty. 2. Right shoulder. 3. Left shoulder. 4. Right ankle. 5. Sinus surgery. 6. Tubes in ears. 7. Uterine ablation. CURRENT MEDICATIONS: 1. Advair Diskus 100/50 mcg per dose 1 inhalation twice daily. 2. [place] Thyroid 1 every day. 3. Biotin 1 tab daily. 4. Bupropion HCl 75 mg daily. 5. Ibuprofen 200 mg 4 tablets p.r.n. 6. Multivitamin daily. 7. Myrbetriq 50 mg 1 tab daily. 8. [place]-3 fish oil 1 tab daily. 9. Singulair 10 mg daily. 10. Tumersaid 2 daily. 11. Venlafaxine HCl ER 150 mg daily. 12. Vitamin B12 1000 mcg monthly. ALLERGIES: No known drug allergies. FAMILY MEDICAL HISTORY: Lung cancer and skin cancer. SOCIAL HISTORY: The patient works from home. She is in [employer]. She denies tobacco use and recreational drug use. She drinks alcohol on occasion. REVIEW OF SYSTEMS: Negative for general, cephalic, cardiovascular, respiratory , GI, , other musculoskeletal, integumentary, and endocrine. Neurologic. Positive for anxiety/depression. Hematologic: Negative. Infectious Disease: Negative for history of MRSA, hepatitis C, HIV. PHYSICAL EXAMINATION GENERAL: Well-developed, well nourished 48 yo female in no acute distress. VITAL SIGNS: Height 5 feet 10 inches, weight 209 pounds, pulse rate 96, blood pressure 162/102. HEENT: Normocephalic, atraumatic. Pupils are equal, round, and reactive to light and accommodation. Extraocular movements are intact. NECK: LUNGS: Clear to auscultation bilaterally. No wheezes, rales, or rhonchi. CARDIOVASCULAR: Regular rate and rhythm. S1, S2. No murmurs, rubs, or gallops. ABDOMEN: Positive bowel sounds, soft, nontender. NEUROLOGIC: Alert and oriented x3. Cranial nerves II through XII are intact. Sensation is intact to light touch. MUSCULOSKELETAL: On exam of her left ring finger, there is a lump in the mid portion of the surgical scar, it appears to be a suture abscess from a nonabsorbable internal suture. The lump is tender to palpation. There is no drainage, no erythema. She has full extension of the finger and can flex to approximately 7 degrees. There is no pain. The finger is well aligned. Neurovascular function is intact. IMPRESSION: Left ring finger suture abscess. PLAN: The patient is scheduled to undergo a left ring finger suture removal with Dr. Lizarraga on 11/10/18. She will return to the office in 10 to 14 days for followup. A prescription for Tylenol With Codeine was e-scribed to the patient' s pharmacy for postoperative pain management. MANDY RITCHIE [id number]/[facility] #: [id number] [place]
[2018-11-10] MEDS ORDERED: Lidocaine 1% INJ* 10 MG/ML 30 ML SDV ONE (14:29)
[2018-11-10 15:05] VITALS: BP 159/80
--- NOTE | 2018-11-11 11:29 | OP ---
DATE OF OPERATION: 11/10/18 [facility] DATE OF : 68 SURGEON: Camilla Lizarraga MD. EQUIPMENT CLEANER: MANDY Ford. ANESTHESIA: Local. PRE-OP DIAGNOSIS: Left ring finger retained painful suture. POST-OP DIAGNOSIS: Left ring finger retained painful suture. OPERATIVE PROCEDURE: Suture removal, left ring finger. ESTIMATED BLOOD LOSS: Zero. TOURNIQUET TIME: Approximately 15 minutes. INDICATIONS FOR PROCEDURE: Charleen is a 48-year-old female who had a PIP joint replacement. She had her tendon repaired with 4-0 nylon suture and now has a small suture abscess, which is very painful. She presents for removal of the suture from her left ring finger. DESCRIPTION OF PROCEDURE: The patient was brought to the operating room, was given a local anesthetic with 10 cc 1% plain lidocaine as a digital block to the left ring finger. Skin of her left hand and forearm was prepped and draped in the usual sterile fashion. A Tourni-Cot was placed over the finger and then the small suture abscess was removed with an ellipse in the area of the previous scar. The suture was removed and in order to remove the whole suture and its knot, a small defect was made in the tendon. This was then repaired with a 5-0 Vicryl suture, which is dissolvable. The wound was irrigated. Skin edges were reapproximated with 4-0 nylon suture and dressed with Xeroform, 4x4, Florencia, and Coban. The patient tolerated the procedure well and was brought to the recovery room in good condition. [id number]/[facility] #: [id number] [facility]
== END 2018-11-10 15:08 | disposition home or self-care (01) ==
LOC: OREAST 12:37
PROVIDERS: ATTEND Orthopaedic Surgery
DX: T81.41XA Infection following a procedure, superficial incisional surgical site, initial encounter (principal); J45.909 Unspecified asthma, uncomplicated; E06.3 Autoimmune thyroiditis

== ENCOUNTER 2019-01-24 10:25 | Emergency (ER) | payer BC ==
[2019-01-24 11:21] VITALS: BP 152/75
--- NOTE | 2019-01-24 12:10 | ED ---
Upper Extremity Pain - HPI Summary HPI Summary: 49 yr old female with the complaint of left elbow pain over the medial epicondyle. 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 No fall or injury. No bruise, no soft tissue swelling. No other complaints. 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, Hx Anemia - HX OF LOW IRON, B12 Denies: Hx Diabetes Cardiovascular History: Denies: Hx Hypertension, Hx Pacemaker/ICD Respiratory History: Reports: Hx Asthma - ALLERGY AND COLD INDUCED Denies: Hx Chronic Obstructive Pulmonary Disease (COPD) GI History: Denies: Hx Ulcer History: Reports: Other Problems/Disorders - OVERACTIVE BLADDER Denies: Hx Renal Disease Musculoskeletal History: Reports: Hx Arthritis - FINGERS, Hx Bursitis, Hx Tendonitis - HX OF - RIGHT SHOULDER, Other Musculoskeletal History - DEGENERATIVE DISC DISEASE Sensory History: Reports: Hx Contacts or Glasses - GLASSES Denies: Hx Hearing Aid Opthamlomology History: Reports: Hx Contacts or Glasses - GLASSES Psychiatric History: Reports: Hx Anxiety - ON MEDICATION FOR, Hx Depression - ON MEDICATION FOR, Hx Panic Disorder - Surgical History Surgery Procedure, Year, and Place: Uterine Ablation. Tubes in Ears. Sinus Surgery. Right Ankle Reconstruction. LEFT SHOULDER REPAIR. 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 RIGHT SHOULDER Hx Anesthesia Reactions: Yes - ITCHING AFTER, AND NAUSEA Infectious Disease History: No Infectious Disease History: Denies: Hx Clostridium Difficile, Hx Hepatitis, Hx Human Immunodeficiency Virus (HIV), Hx of Known/Suspected MRSA, Hx Shingles, Hx Tuberculosis, Hx Known/ Suspected VRE, Hx Known/Suspected VRSA, History Other Infectious Disease, Traveled Outside the [place] in Last 30 Days - Family History Known Family History: Positive: None Negative: Cardiac Disease, Hypertension, Diabetes - Social History Occupation: Employed Full-time Alcohol Use: Occasionally Substance Use Type: Reports: None Smoking Status (MU): Never Smoked Tobacco Have You Smoked in the Last Year: Yes Review of Systems Constitutional: Negative Positive: Other - left elbow pain All Other Systems Reviewed And Are Negative: Yes Physical Exam Triage Information Reviewed: Yes Vital Signs On Initial Exam: Initial Vitals Temp Pulse Resp BP Pulse Ox 98.3 F 88 16 152/75 100 01/24/19 11:16 01/24/19 11:16 01/24/19 11:16 01/24/19 11:16 01/24/19 11:16 Vital Signs Reviewed: Yes Appearance: Positive: Well-Appearing, No Pain Distress Skin: Positive: Warm, Skin Color Reflects Adequate Perfusion Head/Face: Positive: Normal Head/Face Inspection Eyes: Positive: EOMI ENT: Positive: Normal ENT inspection Neck: Positive: Nontender Respiratory/Lung Sounds: Positive: Clear to Auscultation, Breath Sounds Present Cardiovascular: Positive: RRR, Pulses are Symmetrical in both Upper and Lower Extremities Abdomen Description: Positive: Nontender Musculoskeletal: Positive: Other - left elbow with tenderness over the medial epicondyle without STS, without bruising. Pain worse with supination and with griping. Neurological: Positive: Sensory/Motor Intact, Alert, Oriented to Person Place, Time, CN Intact II-III Psychiatric: Positive: Normal Diagnostics - Vital Signs Vital Signs Temp Pulse Resp BP Pulse Ox 01/24/19 11:16 98.3 F 88 16 152/75 100 - Laboratory Lab Statement: Any lab studies that have been ordered have been reviewed, and results considered in the medical decision making process. - Radiology left elbow Radiology Interpretation Completed By: Radiologist - NAD Course/Dx - Course Course Of Treatment: 49 yr old with medial epicondilitis - Diagnoses Provider Diagnoses: Medial epicondylitis, left elbow Discharge - Sign-Out/Discharge Documenting (check all that apply): Patient Departure All imaging exams completed and their final reports reviewed: Yes - Discharge Plan Condition: Good Disposition: HOME Patient Education Materials: Elbow Sprain (ED), Tennis Elbow (ED) Referrals: Any De Leon MD [Primary Care Provider] - 2 Days Additional Instructions: Overview Golfer's elbow is a condition that causes pain where the tendons of your forearm muscles attach to the bony bump on the inside of your elbow. The pain might spread into your forearm and wrist. Golfer's elbow is similar to tennis elbow, which occurs on the outside of the elbow. It's not limited to golfers. Tennis players and others who repeatedly use their wrists or clench their fingers also can develop golfer's elbow. The pain of golfer's elbow doesn't have to keep you off the course or away from your favorite activities. Rest and appropriate treatment can get you back into the swing of things. Symptoms Illustration of golfer's elbow Golfer's elbow Golfer's elbow is characterized by: Pain and tenderness. Usually felt on the inner side of your elbow, the pain sometimes extends along the inner side of your forearm. Pain typically worsens with certain movements. Stiffness. Your elbow may feel stiff, and making a fist might hurt. Weakness. You may have weakness in your hands and wrists. Numbness or tingling. These sensations might radiate into one or more fingers usually the ring and little fingers. The pain of goljaime's elbow can come on suddenly or gradually. The pain might worsen with certain movements, such as swinging a golf club. When to see a doctor Consult your doctor if rest, ice and [id number] pain relievers don't ease your elbow pain and tenderness. Seek immediate care if: Your elbow is hot and inflamed, and you have a fever You can't bend your elbow Your elbow looks deformed You suspect you've broken a bone Request an Appointment at [facility] Causes Goljaime's elbow, also known as medial epicondylitis, is caused by damage to the muscles and tendons that control your wrist and fingers. The damage is typically related to excess or repeated stress especially forceful wrist and finger motions. Improper lifting, throwing or hitting, as well as too little warmup or poor conditioning, also can contribute to golfer's elbow. Besides golf, many activities and occupations can lead to golfer's elbow, including: Racket sports. Improper technique with tennis strokes, especially the backhand, can cause injury to the tendon. Excessive use of topspin and using a racket that 's too small or heavy also can lead to injury. Throwing sports. Improper pitching technique in baseball or softball can be another culprit. Football, archery and javelin throwing also can cause golfer's elbow. Weight training. Lifting weights using improper technique, such as curling the wrists during a biceps exercise, can overload the elbow muscles and tendons. Forceful, repetitive occupational movements. These occur in tyson such as construction, plumbing and carpentry To cause golfer's elbow, the activity generally needs to be done for more than an hour a day on many days. Risk factors You could be at higher risk of developing golfer's elbow if you're: Age 40 or older Performing repetitive activity at least two hours a day Obese A smoker Prevention You can take steps to prevent golfer's elbow: Strengthen your forearm muscles. Use light weights or squeeze a tennis ball. Even simple exercises can help your muscles absorb the energy of sudden physical stress. Stretch before your activity. Walk or jog for a few minutes to warm up your muscles. Then do gentle stretches before you begin your game. Fix your form. Whatever your sport, ask an instructor to check your form to avoid overload on muscles. Use the right equipment. If you're using older golfing irons, consider upgrading to billet straightener graphite clubs. If you play tennis, make sure your racket fits you. A racket with a small luggage repairer or a heavy head may increase the risk of elbow problems. Lift properly. When lifting anything including free weights keep your wrist rigid and stable to reduce the force to your elbow. Know when to rest. Try not to overuse your elbow. At the first sign of elbow pain, take a break. By [facility] Staff Request an Appointment at [facility] Diagnosis & treatment 2017 Print Share on: [employer]ince[employer] References Related Love to golf? Protect your elbows Overuse injury prevention Numbness Elbow pain Golfer's elbow Symptoms & causes Diagnosis & treatment Doctors & departments Advertisement [facility] does not endorse companies or products. Advertising revenue supports our [id number] mission. Advertising & Sponsorship PolicyOpportunitiesAd Choices [facility] Marketplace Check out these best-gaitan and special offers on books and newsletters from [facility]. The [facility] Diet Online Eat well. Enjoy life. Lose weight. 4 Simple Steps to a [place]-Filled Life Improve Your Hearing and Balance Stop Osteoporosis in its Tracks FREE TRIAL [facility] Health Letter - Billing Disposition and Condition Condition: GOOD Disposition: Home
== END 2019-01-24 12:26 | disposition home or self-care (01) ==
LOC: UCCORT 10:25
DX: M77.02 Medial epicondylitis, left elbow (principal); E06.3 Autoimmune thyroiditis; Z91.09 Other allergy status, other than to drugs and biological substances; Z79.899 Other long term (current) drug therapy
CPT/HCPCS: 99211; G0463